=== PATIENT | male | born 1950 | race Caucasian/White ===

== ENCOUNTER 2017-12-07 12:38 | Outpatient (CLI) | payer MEDICARE, OTHER ==
--- NOTE | 2017-12-07 16:24 | Ultrasound Report ---
AORTA SCREEN: 12/07/2017 CLINICAL INDICATION: Screening for aneurysm. TECHNIQUE: Real-time sonographic imaging was performed by the drive in theater attendant through the aorta. Multiple contracts representative static images were saved for review. FINDINGS: There is mild aneurysmal dilatation of the proximal abdominal aorta, measuring 3.1 cm. The mid portion measures up to 2.6 cm, and the distal portion measures 1.9 cm. The iliacs are normal in caliber. No free fluid is present. IMPRESSION: MILD ANEURYSMAL DILATATION OF THE PROXIMAL ABDOMINAL AORTA, MEASURING UP TO 3.1 CM IN DIAMETER. TD: 12/07/2017 16:22 DAVID
== END 2017-12-07 12:39 | disposition home or self-care (01) ==
LOC: DI 12:38
PROVIDERS: ATTEND Internal Medicine
DX: Z13.6 Encounter for screening for cardiovascular disorders (principal); I71.4 Abdominal aortic aneurysm, without rupture
CPT/HCPCS: 76706

== ENCOUNTER 2018-01-02 15:07 | Outpatient (CLI) | payer MEDICARE, OTHER ==
--- NOTE | 2018-01-03 14:32 | Ultrasound Report ---
RIGHT UPPER QUADRANT ULTRASOUND: 01/02/2018 CLINICAL INDICATION: Elevated LFTs. TECHNIQUE: Real-time scanning was performed with direct customer service representative static images obtained. FINDINGS: The liver measures 12.4 cm. Hepatic echogenicity is increased, compatible with fatty infiltration. No focal parenchymal lesion or intrahepatic biliary dilatation is present. The common bile duct measures 6 mm. The gallbladder is normal. The right kidney measures 11.3 cm, and demonstrates a 6 mm cyst. No hydronephrosis is present. No free fluid is seen. IMPRESSION: FATTY INFILTRATION OF THE LIVER. NO EVIDENCE OF CHOLELITHIASIS OR BILIARY DILATATION. TD: 01/03/2018 14:32
== END 2018-01-02 15:08 | disposition home or self-care (01) ==
LOC: DI 15:07
PROVIDERS: ATTEND Internal Medicine
DX: K76.0 Fatty (change of) liver, not elsewhere classified (principal)
CPT/HCPCS: 76705

== ENCOUNTER 2019-02-26 11:58 | Outpatient (CLI) | payer MEDICARE, OTHER ==
--- NOTE | 2019-02-28 07:46 | CT Report ---
Reason: CHRONIC SINUSITIS Procedure Date: 02/26/2019 Accession Number: [id number] / [id number] Procedure: CT - Sinuses CPT Code: FULL RESULT: EXAM: CT SINUS EXAM DATE: 02/26/2019 12:27 PM. HISTORY: Chronic sinusitis. COMPARISONS: None. TECHNIQUE: Routine multi-axial CT imaging performed through the sinuses. Iodinated IV contrast: None. Reconstructions: Multiplanar reformats. In accordance with CT protocol optimization, one or more of the following dose reduction techniques were utilized for this exam: automated exposure control, adjustment of mA and/or KV based on patient size, or use of iterative reconstructive technique. FINDINGS: RIGHT Frontal: Minimal mucosal thickening. Ethmoid: Minimal mucosal thickening. Maxillary: Small retention cyst or polyp along the floor of the maxillary sinus is seen. Sphenoid: Normal. Drainage Pathways: The frontal recess, ostiomeatal complex and sphenoethmoidal recess are patent and normal. LEFT Frontal: Small/atretic appearance. Minimal mucosal thickening. Ethmoid: Minimal mucosal thickening. Maxillary: Normal. Sphenoid: Normal. Drainage Pathways: The frontal recess, ostiomeatal complex and sphenoethmoidal recess are patent and normal. Nasal Cavity: Mild leftward nasal septal deviation is seen. Small sue bullosa is seen on the right side. Osseous Structures: Unremarkable. Orbits: Unremarkable. Other: None. IMPRESSION: Minimal paranasal sinus disease seen. No air-fluid level is demonstrated. Nasal drainage pathways are diffusely patent. [facility]
== END 2019-02-26 11:59 | disposition home or self-care (01) ==
LOC: DI 11:58
PROVIDERS: ATTEND Internal Medicine
DX: J32.4 Chronic pansinusitis (principal)
CPT/HCPCS: 70486